=== PATIENT | male | born 1995 | race Caucasian/White ===

== ENCOUNTER 2020-06-28 12:56 | Emergency (ER) | payer OTHER ==
[2020-06-28 14:47] LABS: Absolute Lymphocytes (CBC) 1.3 K/uL (0.7-4.9); Hematocrit 44.5 % (39.6-49.0); Lymphocytes % 36.8 % (15.3-44.8); MPV 9.6 fL (7.6-11.3); RBC Red Blood Cell Count 4.89 M/uL (4.33-5.43)
[2020-06-28] MEDS ORDERED: FAMOTIDINE 20 MG/2 ML VIAL IV ONE (14:54)
[2020-06-28] MEDS ORDERED: NA CHLORIDE 0.9% 1,000 ML ONE (14:54)
[2020-06-28] MEDS ORDERED: ONDANSETRON 4 MG/2 ML VIAL ONE (14:54)
--- NOTE | 2020-06-28 15:03 | RAD REPORT ---
EXAM DESCRIPTION: CTAbdomen Pelvis W Contrast - 06/28/2020 2:55 pm CLINICAL HISTORY: Abdominal pain. ABD PAIN COMPARISON: No comparisons TECHNIQUE: Biphasic CT imaging of the abdomen and pelvis was performed with 100 ml non-ionic IV cont rast. All CT scans are performed using dose optimization technique as appropriate and may include automated exposure control or mA/KV adjustment according to patient size. FINDINGS: The lung bases are clear. The liver contains numerous tiny hypodensities likely small cysts. Spleen, pancreas, adrenal glands a nd kidneys are within normal limits. No bowel obstruction, free air, free fluid or abscess. The appendix is normal. No evidence of signi ficant lymphadenopathy. No suspicious bony findings. IMPRESSION: No acute intra-abdominal or pelvic finding.
[2020-06-28 15:07] LABS: Albumin 4.5 g/dL (3.4-5.0); Bilirubin Direct 0.5 mg/dL (0-0.2); Bilirubin Total 2.7 mg/dL (0.2-1.0); Potassium 4.1 mmol/L (3.5-5.1); Protein, Total 7.9 g/dL (6.4-8.2)
--- NOTE | 2020-06-28 16:52 | RAD REPORT ---
EXAM DESCRIPTION: US - Abdomen Exam Limited - 06/28/2020 4:31 pm CLINICAL HISTORY: elevated bilirubin;Abd pain COMPARISON: <Comparisons> FINDINGS: The gallbladder demonstrates no gallstones. No pericholecystic fluid or gallbladder wall t hickening. The common bile duct is normal measuring 3 mm. The liver demonstrates no findings of intrahepatic biliary dilatation. IMPRESSION: Unremarkable examination.
--- NOTE | 2020-06-28 17:11 | ER ---
Nurse's Notes [facility] Name: Hadley Ambrocio Age: 24 yrs Sex: Male : 1995 Arrival Date: 06/28/2020 Time: 12:59 Bed 14 Private MD: Diagnosis: Upper abdominal pain, unspecified Presentation: 06/28 13:31 Chief complaint: Patient states: Abdominal pain, upper, pain x [address] galina Sandoval for a colonoscopy in 2019, nothing came out. Reports Nausea and vomiting at times. Am here cause I can't get a doctor's appointment in time. My insurance will ran out in June. Coronavirus screen: Client denies travel out of the [place] in the last 14 days. nausea, vomiting. Client presents with at least one sign or symptom that may indicate coronavirus-19. Standard/surgical mask placed on the client. Provider contacted for isolation considerations. Ebola Screen: Patient negative for fever greater than or equal to 101.5 degrees Fahrenheit, and additional compatible Ebola Virus Disease symptoms Patient denies exposure to infectious person. Patient denies travel to an Ebola-affected area in the 21 days before illness onset. No symptoms or risks identified at this time. Initial Sepsis Screen: Does the patient meet any 2 criteria? No. Patient's initial sepsis screen is negative. Does the patient have a suspected source of infection? No. Patient's initial sepsis screen is negative. Risk Assessment: Do you want to hurt yourself or someone else? Patient reports no desire to harm self or others. Onset of symptoms was June 28, 2020. 13:31 Method Of Arrival: Ambulatory ca1 13:31 Acuity: ADRIENNE 3 ca1 Historical: - Allergies: 13:35 No Known Allergies; ca1 - Home Meds: 13:35 None [Active]; ca1 - PMHx: 13:35 None; ca1 - PSHx: 13:35 None; ca1 - Immunization history:: Flu vaccine is not up to date. - Social history:: Smoking status: Patient/guardian denies using tobacco, the patient reports quitting approximately 1 years ago. Screenin:24 Abuse screen: Denies threats or abuse. Denies injuries from another. Nutritional zb screening: No deficits noted. Tuberculosis screening: No symptoms or risk factors identified. Fall Risk None identified. Assessment: 14:00 General: Appears in no apparent distress. comfortable, Behavior is calm, cooperative, zb appropriate for age, Denies fever, feeling ill, fatigue, chills. Pain: Complains of pain in epigastric area Pain does not radiate. Pain currently is 1 out of 10 on a pain scale. Quality of pain is described as aching. Neuro: Level of Consciousness is awake, alert, obeys commands, Oriented to person, place, time, situation, Moves all extremities. Full function Gait is steady. Cardiovascular: Patient's skin is warm and dry. Respiratory: Airway is patent Respiratory effort is even, unlabored, Respiratory pattern is regular, symmetrical. GI: Abdomen is flat, non-distended, Bowel sounds present X 4 quads. Abd is soft and non tender X 4 quads. Reports bloating. : No deficits noted. EENT: No deficits noted. Derm: Skin is intact, is healthy with good turgor, Skin is dry, Skin is normal, Skin temperature is warm. Musculoskeletal: Range of motion: intact in all extremities. 14:02 Reassessment: ecp at bedside. zb 17:09 Reassessment: ECP at bedside. zb Vital Signs: 13:31 BP 129 / 56; Pulse 68; Resp 16 S; Temp 98(TE); Pulse Ox 99% on R/A; Weight 63.5 kg (R); ca1 Height 5 ft. 9 in. (175.26 cm) (R); Pain 2/10; 14:24 BP 118 / 71; Pulse 57; Resp 16; Pulse Ox 100% on R/A; zb 15:30 BP 119 / 69; Pulse 65; Resp 15; Pulse Ox 99% on R/A; zb 16:30 BP 109 / 72; Pulse 58; Resp 16; Pulse Ox 100% on R/A; zb 13:31 Body Mass Index 20.67 (63.50 kg, 175.26 cm) ca1 ED Course: 12:59 Patient arrived in ED. as 13:35 Triage completed. ca1 13:35 Arm band placed on right wrist. ca1 13:52 Mike Baltazar PA is PHCP. cp 13:52 Mike Chauhan MD is Attending Physician. cp 14:05 Temi Madison RN is Primary Nurse. zb 14:24 Patient has correct armband on for positive identification. Pulse ox on. NIBP on. zb 14:25 Inserted saline lock: 20 gauge in right antecubital area, using aseptic technique. zb Blood collected. 14:55 CT Abd/Pelvis - IV Contrast Only In Process Unspecified. EDMS 16:31 US Abdomen Limited: RUQ In Process Unspecified. EDMS 17:11 Gildardo Garrett MD is Referral Physician. cp Administered Medications: 14:43 Drug: Pepcid 20 mg Route: IVP; Site: right antecubital; zb 16:45 Follow up: Response: No adverse reaction zb 14:43 Drug: NS 0.9% 1000 ml Route: IV; Rate: 1 bolus; Site: right antecubital; zb 16:45 Follow up: Response: No adverse reaction; IV Status: Completed infusion; IV Intake: zb 1000ml 14:44 Drug: Zofran (Ondansetron) 4 mg Route: IVP; Site: right antecubital; zb 16:46 Follow up: Response: No adverse reaction zb Intake: 16:45 IV: 1000ml; Total: 1000ml. zb Outcome: 17:11 Discharge ordered by . cp 17:45 Patient left the ED. zb Signatures: Dispatcher [employer] EDMS Lovely Ponce as Mike Baltazar PA PA cp Maria Antonia Tiwari, RN RN Temi Treviño RN RN zb
--- NOTE | 2020-06-28 17:12 | EDPHYS ---
Physician Documentation [facility] Name: Hadley Ambrocio Age: 24 yrs Sex: Male : 1995 Arrival Date: 06/28/2020 Time: 12:59 Bed 14 Private MD: ED Physician Mike Chauhan HPI: 06/28 14:05 This 24 yrs old Male presents to ER via Ambulatory with complaints of cp Abdominal Cramping, Nausea/Vomiting, Back Pain. 14:05 The patient presents with abdominal pain in the upper abdomen. Onset: The cp symptoms/episode began/occurred for past 7-12 months. The symptoms radiate to back. 14:05 Associated signs and symptoms: Pertinent positives: nausea, Pertinent negatives: cp constipation, diarrhea, dysuria, fever, testicular pain. The symptoms are described as intermittent. Severity of pain: in the emergency department the pain has resolved. Patient reports pain does seem to occur when eating and that he has seen DR Garrett in the past who performed endoscopy. Patient reports results of endoscopy were normal. Historical: - Allergies: 13:35 No Known Allergies; ca1 - Home Meds: 13:35 None [Active]; ca1 - PMHx: 13:35 None; ca1 - PSHx: 13:35 None; ca1 - Immunization history:: Flu vaccine is not up to date. - Social history:: Smoking status: Patient/guardian denies using tobacco, the patient reports quitting approximately 1 years ago. ROS: 14:10 Constitutional: Negative for body aches, chills, fever, poor PO intake. cp 14:10 Eyes: Negative for injury, pain, redness, and discharge. cp 14:10 ENT: Negative for ear pain, sore throat. 14:10 Cardiovascular: Negative for chest pain, palpitations. 14:10 Respiratory: Negative for cough, shortness of breath, wheezing. 14:10 Abdomen/GI: Positive for abdominal pain, nausea, Negative for vomiting, diarrhea, constipation, black/tarry stool, rectal bleeding. 14:10 Back: Positive for radiated pain. 14:10 : Negative for urinary symptoms, testicular pain 14:10 All other systems are negative. Exam: 14:17 Constitutional: The patient appears in no acute distress, alert, awake, comfortable, cp non-toxic, well developed, well nourished. 14:17 Head/Face: Normocephalic, atraumatic. cp 14:17 Eyes: Periorbital structures: appear normal, Conjunctiva: normal, no exudate, no injection, Sclera: no appreciated abnormality, Lids and lashes: appear normal, bilaterally. 14:17 ENT: External ear(s): are unremarkable, Nose: is normal, Mouth: Lips: moist, Posterior pharynx: Airway: no evidence of obstruction, patent. 14:17 Chest/axilla: Inspection: normal, Palpation: is normal, no crepitus, no tenderness. 14:17 Cardiovascular: Rate: normal, Rhythm: regular. 14:17 Respiratory: the patient does not display signs of respiratory distress, Respirations: normal, no use of accessory muscles, no retractions, labored breathing, is not present, Breath sounds: are clear throughout, no decreased breath sounds, no stridor, no wheezing. 14:17 Abdomen/GI: Inspection: abdomen appears normal, Bowel sounds: active, all quadrants, Palpation: soft, in all quadrants, mild abdominal tenderness, in the right upper quadrant, rebound tenderness, is not appreciated, voluntary guarding, is not appreciated, involuntary guarding, is not appreciated. 14:17 Back: CVA tenderness, is absent. Vital Signs: 13:31 BP 129 / 56; Pulse 68; Resp 16 S; Temp 98(TE); Pulse Ox 99% on R/A; Weight 63.5 kg (R); ca1 Height 5 ft. 9 in. (175.26 cm) (R); Pain 2/10; 14:24 BP 118 / 71; Pulse 57; Resp 16; Pulse Ox 100% on R/A; zb 15:30 BP 119 / 69; Pulse 65; Resp 15; Pulse Ox 99% on R/A; zb 16:30 BP 109 / 72; Pulse 58; Resp 16; Pulse Ox 100% on R/A; zb 13:31 Body Mass Index 20.67 (63.50 kg, 175.26 cm) ca1 MDM: 13:53 Patient medically screened. shelia 14:20 Differential diagnosis: cholecystitis, Cholelithiasis, gastritis, Peptic Ulcer Disease, cp Perf. Duodenal Ulcer, Perf. Gastric Ulcer, Ureterolithiasis, urinary tract infection. 17:10 Data reviewed: vital signs, nurses notes, lab test result(s), radiologic studies, CT cp scan, plain films, and as a result, I will discharge patient. 17:10 Special discussion: Based on the patient's Hx, exam, and Dx evaluation, there is no cp indication for emergent surgery or inpatient Tx. It is understood by the patient/guardian that if the Sx's persist or worsen they need to return immediately for re-evaluation. 06/28 14:02 Order name: Basic Metabolic Panel; Complete Time: 15:09 cp 06/28 14:02 Order name: CBC with Diff; Complete Time: 15:04 cp 06/28 14:02 Order name: Hepatic Function; Complete Time: 15:09 cp 06/28 15:09 Interpretation: Normal except: BILIT 2.7; BILID 0.5. cp 06/28 14:02 Order name: Lipase; Complete Time: 15:09 cp 06/28 14:31 Order name: CT Abd/Pelvis - IV Contrast Only; Complete Time: 15:04 cp 06/28 15:05 Interpretation: Report reviewed. 06/28 15:10 Order name: US Abdomen Limited: RUQ; Complete Time: 17:02 cp 06/28 14:02 Order name: IV Saline Lock; Complete Time: 14:16 cp 06/28 14:02 Order name: Labs collected and sent; Complete Time: 14:16 cp Administered Medications: 14:43 Drug: Pepcid 20 mg Route: IVP; Site: right antecubital; zb 16:45 Follow up: Response: No adverse reaction zb 14:43 Drug: NS 0.9% 1000 ml Route: IV; Rate: 1 bolus; Site: right antecubital; zb 16:45 Follow up: Response: No adverse reaction; IV Status: Completed infusion; IV Intake: zb 1000ml 14:44 Drug: Zofran (Ondansetron) 4 mg Route: IVP; Site: right antecubital; zb 16:46 Follow up: Response: No adverse reaction zb Disposition: 06/28/20 17:11 Discharged to Home. Impression: Upper abdominal pain, unspecified. - Condition is Stable. - Discharge Instructions: Abdominal Pain, Adult. - Prescriptions for Bentyl 20 mg Oral Tablet - take 2 tablet by ORAL route every 6 hours As needed; 40 tablet. Zofran 4 mg Oral Tablet - take 1 tablet by ORAL route every 12 hours As needed; 20 tablet. - Medication Reconciliation Form, Thank You Letter, Antibiotic Education, Prescription Opioid Use form. - Follow up: Gildardo Garrett MD; When: 2 - 3 days; Reason: Recheck today's complaints. - Problem is an ongoing problem. - Symptoms have improved. Addendum: 06/30/2020 09:09 Co-signature as Attending Physician, Mike Chauhan MD I agree with the assessment and c harman plan of care. Signatures: Dispatcher [employer] EDUT Mike Chauhan MD MD cha Page, Corey, PA PA cp Maria Antonia Tiwari, RN RN Temi Treviño RN RN zb Corrections: (The following items were deleted from the chart) 06/28 17:45 17:11 06/28/2020 17:11 Discharged to Home. Impression: Upper abdominal pain, zb unspecified. Condition is Stable. Forms are Medication Reconciliation Form, Thank You Letter, Antibiotic Education, Prescription Opioid Use. Follow up: Gildardo Garrett; When: 2 - 3 days; Reason: Recheck today's complaints. Problem is an ongoing problem. Symptoms have improved. cp 06/29 16:14 06/28 14:05 Patient reports pain does seem to occur when eating. cp cp
[2020-06-28 18:11] VITALS: TEMP 98
[2020-06-28 18:15] VITALS: BP 109/72; O2SAT 100
== END 2020-06-28 17:45 | disposition home or self-care (01) ==
LOC: ER 12:56
DX: R10.10 Upper abdominal pain, unspecified (principal)
CPT/HCPCS: 96361; 85025; 80048; 36415; 80076; 83690; 74177; 76705; 96375; 96374; 99284; Q9967; J7030; J2405